=== PATIENT | male | born 1935 | race Caucasian/White ===

== ENCOUNTER 2018-11-19 10:14 | Emergency (ER) | payer OTHER, BC ==
[~2018-11-19] VITALS: Ht 172.7 cm; Wt 88.9 kg
[~2018-11-19 10:14] MED LIST: ACIDOPHILUS LA1 EACH PO; ASPIRIN EC81 M1 PO; AVELOX400 MG PO; BACTRIM DS TAB1 EACH PO; BACTROBAN CREAM30 GM TOP; CARVEDILOL3.125 MG PO; DOXYCYCLINE 10100 M1 PO; HYDROCODON-ACE1 EAC2 PO; LISINOPRIL5 MG PO; NORCO 5-325 TA1 EACH PO; RANITIDINE 150150 MG PO; VYTORIN 10-101 EACH PO; VYTORIN 10-401 EACH PO
[2018-11-19 10:50] LABS: URINE BILIRUBIN NEGATIVE (Negative); URINE CLARITY CLEAR; URINE COLOR YELLOW; URINE GLUCOSE-RANDOM* NEGATIVE (Negative); URINE KETONES TRACE (Negative); URINE PROTEIN (DIPSTICK) NEGATIVE (Negative)
[2018-11-19 10:51] LABS: URINE BLOOD TRACE (Negative); URINE LEUKOCYTES-REFLEX NEGATIVE (Negative); URINE NITRITE-REFLEX NEGATIVE (Negative); URINE UROBILINOGEN 0.2 E.U./dl (0.2-1.0)
[2018-11-19 10:54] LABS: ABSOLUTE NEUTROPHILS 3.6 thou/uL (1.4-8.2); BASOPHILS 0.3 % (0.0-2.0); EOSINOPHILS 0.1 % (0.0-3.0); HEMATOCRIT 40.9 % (42.0-52.0); HEMOGLOBIN 14.1 gm/dL (14.0-18.0); LYMPHOCYTES 8.6 % (24.0-44.0); MCH 29.8 pg (26.0-34.0); MCHC 34.5 g/dL (28.0-37.0); MCV 86.3 fL (80.0-100.0); MONOCYTES 10.6 % (1.0-8.0); PLATELET COUNT 124 thou/uL (150-400); POLYS 80.4 % (36.0-66.0); RBC 4.74 mil/uL (4.50-6.00); RDW 13.9 % (10.5-14.5); WBC 4.4 thou/uL (4.0-11.0)
[2018-11-19 11:01] LABS: CALCIUM 8.9 mg/dL (8.5-10.1); CREATININE 0.9 mg/dL (0.7-1.3); POTASSIUM 3.8 mmol/L (3.5-5.1)
[2018-11-19 11:08] LABS: ALBUMIN 3.6 g/dL (3.4-5.0); TOTAL BILIRUBIN 0.8 mg/dL (<0.1-1.0)
[2018-11-19] MEDS ORDERED: ONDANSETRON HCL4 M2 PO (13:54)
[2018-11-19 15:01] VITALS: BP 155/73
--- NOTE | 2018-11-21 21:46 | EKG ---
[place] [address] [facility] [employer] [place] [address] ELECTROCARDIOGRAM REPORT Name: WILMA Room #: DEP [facility] [id number] Admission: 11/19/18 Attend Phys: Discharge: 11/19/18 Date of : 33 Report #: [id number] THIS REPORT FOR: //name// [facility] ED Test Date: 2018-11-19 Test Time: 10:40:25 Pat Name: WILMA JEFFRIES Department: Room: Gender: Tie Fastener: jlfran : 1935 Requested By: Erick Barrientos Order Number: [id number] MD: Tu Villalobos Measurements Intervals [place] Rate: 70 P: -7 [place]: 210 QRS: -6 QRSD: 106 T: 55 QT: 377 QTc: 407 Interpretive Statements Sinus rhythm Borderline T wave abnormalities Compared to ECG 07/08/2018 07:52:51 No significant changes Electronically Signed On 11-21-2018 21:45:57 CONTENT CHECKER by Tu Villalobos [email or web address] <ELECTRONICALLY SIGNED> By: Tu Villalobos MD 11/21/18 [id number] [id number] 39 Tu Villalobos MD /CHARMAINE
== END 2018-11-19 14:15 | disposition home or self-care (01) ==
LOC: ER 10:14
PROVIDERS: Physician Assistant
DX: R19.7 Diarrhea, unspecified (principal); R11.0 Nausea; R14.0 Abdominal distension (gaseous); E78.00 Pure hypercholesterolemia, unspecified; G89.29 Other chronic pain; M54.9 Dorsalgia, unspecified; Z88.8 Allergy status to other drugs, medicaments and biological substances; Z88.1 Allergy status to other antibiotic agents; Z95.5 Presence of coronary angioplasty implant and graft

== ENCOUNTER → 2019-11-17 | Outpatient (CLI) | payer OTHER, BC ==
[~2019-11-17] MED LIST changes: +ONDANSETRON HCL4 M2 PO
== END ==
LOC: NUC 10:06
DX: I25.5 Ischemic cardiomyopathy (principal); I10 Essential (primary) hypertension; E78.5 Hyperlipidemia, unspecified; I25.10 Atherosclerotic heart disease of native coronary artery without angina pectoris; Z79.899 Other long term (current) drug therapy

== ENCOUNTER 2021-02-11 23:35 | Emergency (ER) | payer OTHER, BC ==
[~2021-02-11] VITALS: Ht 172.7 cm; Wt 88.5 kg
[~2021-02-11 23:35] MED LIST changes: +ALLOPURINOL 30300 M2 PO; +ASPIR-LOW81 MG PO; +CLEOCIN HCL150 MG PO; +COREG6.25 MG PO; +KEFLEX500 MG PO; +NORCO 10-325 T1 EACH PO; +ZANTAC 150MG T150 MG PO
[2021-02-11 23:58] LABS: MCV 89.6 fL (80.0-100.0)
[2021-02-12] LABS: ABSOLUTE NEUTROPHILS 4.8 thou/uL (1.4-8.2); BASOPHILS 0.8 % (0.0-2.0); EOSINOPHILS 3.7 % (0.0-3.0); HEMATOCRIT 39.5 % (42.0-52.0); LYMPHOCYTES 14.3 % (24.0-44.0); MCH 29.4 pg (26.0-34.0); MCHC 32.8 g/dL (28.0-37.0); MONOCYTES 9.9 % (1.0-8.0); PLATELET COUNT 135 thou/uL (150-400); POLYS 71.3 % (36.0-66.0); RBC 4.41 mil/uL (4.50-6.00); RDW 15.5 % (10.5-14.5); WBC 6.7 thou/uL (4.0-11.0)
[2021-02-12 00:22] LABS: ALBUMIN 3.7 g/dL (3.4-5.0); CALCIUM 8.9 mg/dL (8.5-10.1); POTASSIUM 4.5 mmol/L (3.5-5.1); TOTAL BILIRUBIN 1.3 mg/dL (0.2-1.0); TOTAL PROTEIN 7.3 g/dL (6.4-8.2)
[2021-02-12 00:22] LABS: URINE BILIRUBIN NEGATIVE (Negative); URINE BLOOD NEGATIVE (Negative); URINE CLARITY CLEAR; URINE COLOR YELLOW; URINE GLUCOSE-RANDOM* NEGATIVE (Negative); URINE KETONES NEGATIVE (Negative); URINE LEUKOCYTES-REFLEX NEGATIVE (Negative); URINE NITRITE-REFLEX NEGATIVE (Negative); URINE PROTEIN (DIPSTICK) NEGATIVE (Negative); URINE SPECIFIC GRAVITY 1.015 (1.005-1.035)
[2021-02-12] MEDS ORDERED: PROTONIX40 M2 PO (02:43)
[2021-02-12] MEDS ORDERED: ELIQUIS5 MG PO (02:44)
[2021-02-12] MEDS ORDERED: EZETIMIBE-SIMV1 EACH PO (02:44)
[2021-02-12] MEDS ORDERED: CARVEDILOL6.25 M1 PO (02:44)
[2021-02-12] MEDS ORDERED: LOSARTAN POTASS50 MG PO (02:44)
[2021-02-12 04:55] VITALS: BP 164/94
== END 2021-02-12 04:57 | disposition home or self-care (01) ==
LOC: ER 23:35
PROVIDERS: Emergency Medicine
DX: E27.9 Disorder of adrenal gland, unspecified (principal); R10.30 Lower abdominal pain, unspecified; I25.2 Old myocardial infarction; K21.9 Gastro-esophageal reflux disease without esophagitis; M10.9 Gout, unspecified; Z79.899 Other long term (current) drug therapy; Z88.8 Allergy status to other drugs, medicaments and biological substances